=== PATIENT | male | born 1975 | race Two or more races ===

== ENCOUNTER 2018-04-10 13:57 | Emergency (ER) | payer MEDICAID ==
[~2018-04-10] VITALS: Ht 177.8 cm; Wt 99.8 kg
[2018-04-10 13:57] VITALS: BP 138/98
== END 2018-04-10 14:32 | disposition home or self-care (01) ==
LOC: ER 14:01
DX: G51.0 Bell's palsy (principal); F32.9 Major depressive disorder, single episode, unspecified; Z60.2 Problems related to living alone; Z87.891 Personal history of nicotine dependence
CPT/HCPCS: 99283; A4606; Z7610

== ENCOUNTER 2018-05-21 15:32 | Emergency (ER) | payer MEDICAID ==
[~2018-05-21] VITALS: Ht 177.8 cm; Wt 99.8 kg
[2018-05-21 15:39] VITALS: BP 155/94
== END 2018-05-21 16:21 | disposition home or self-care (01) ==
LOC: ER 15:33
DX: L71.9 Rosacea, unspecified (principal); F41.9 Anxiety disorder, unspecified; F32.9 Major depressive disorder, single episode, unspecified; Z60.2 Problems related to living alone
CPT/HCPCS: 99283; A4606; Z7610

== ENCOUNTER 2022-11-06 12:45 | Emergency (ER) | payer MEDICAID ==
[~2022-11-06] VITALS: Ht 177.8 cm; Wt 92.1 kg
[2022-11-06 13:12] VITALS: BP 132/92
[2022-11-06] MEDS ORDERED: METF-440 PO (13:30)
[2022-11-06] MEDS ORDERED: DILT-32 PO (13:30)
== END 2022-11-06 13:37 | disposition home or self-care (01) ==
LOC: ER 12:52
DX: E11.9 Type 2 diabetes mellitus without complications (principal); I10 Essential (primary) hypertension; Z76.0 Encounter for issue of repeat prescription; F31.9 Bipolar disorder, unspecified; Z60.2 Problems related to living alone
CPT/HCPCS: 82962-TC